=== PATIENT | female | born 1955 | race American Indian/Alaskan Native ===

== ENCOUNTER 2017-03-31 08:47 | Outpatient (CLI) | payer OTHER ==
--- NOTE | 2017-03-31 10:01 | Mammography Report ---
Screening mammogram: The patient has had reduction surgery. There is mild architectural distortion consistent with that history. No suspicious distortion, mass, or suspicious calcifications identified. The overall breast pattern is generally fatty replaced. CAD used. Impression: Benign breast pattern. Recommendation: Annual mammogram followup. BI-RADS CATEGORY: 2 = Benign ACR BI-RADS MAMMOGRAPHIC CODES: 0 = Needs additional imaging evaluation; 1 = Negative; 2 = Benign; 3 = Probably benign; 4 = Suspicious; 5 = Malignant; 6 = Known biopsy-proven malignancy COMMENT: 1. Dense breast tissue, i.e., adenosis, fibrocystic changes, etc., may obscure an underlying neoplasm. 2. Approximately 10% of cancers are not detected with mammography. 3. A negative mammography report should not delay biopsy if a clinically suspicious mass is present.
== END 2017-03-31 08:48 | disposition home or self-care (01) ==
LOC: MAMMO 08:47
PROVIDERS: ATTEND Obstetrics & Gynecology
DX: Z12.31 Encounter for screening mammogram for malignant neoplasm of breast (principal); I10 Essential (primary) hypertension; Z98.890 Other specified postprocedural states
CPT/HCPCS: 77067; G0202

== ENCOUNTER 2018-04-01 10:05 | Outpatient (CLI) | payer OTHER ==
--- NOTE | 2018-04-04 08:53 | Mammography Report ---
BILATERAL DIGITAL SCREENING MAMMOGRAM with CAD: 04/01/18 10:05:00 CLINICAL: Routine screening. COMPARISON:03/31/17 FINDINGS: The breasts are almost entirely fatty.Minimal postsurgical scar. Bilateral benign calcifications. No mass, architectural distortion or suspicious calcifications. IMPRESSION: No mammographic evidence of malignancy. BI-RADS CATEGORY: 2 -- Benign RECOMMENDATION: Routine mammographic screening in one year. COMMENT: Patient follow-up letters are generated by our [employer] application.
== END 2018-04-01 10:06 | disposition home or self-care (01) ==
LOC: MAMMO 10:05
PROVIDERS: ATTEND Obstetrics & Gynecology
DX: Z12.31 Encounter for screening mammogram for malignant neoplasm of breast (principal); I10 Essential (primary) hypertension
CPT/HCPCS: 77067

== ENCOUNTER 2018-09-13 02:11 | Emergency (ER) | payer OTHER ==
[2018-09-13 02:43] VITALS: BP 156/91
[2018-09-13] MEDS ORDERED: NACL 0.9% 1000 ML 1,000 ML IV ONE (02:43)
[2018-09-13 02:59] LABS: Basophils % (Auto) 0.6 % (0.0-1.8); Eosinophils # (Auto) 0.1 K/mm3 (0.0-0.4); Eosinophils % (Auto) 2.9 % (0.0-4.3); Hematocrit 39.1 % (30.3-42.9); Hemoglobin 12.9 gm/dl (10.1-14.3); Lymphocytes # (Auto) 2.1 K/mm3 (1.2-5.4); Lymphocytes % (Auto) 43.3 % (13.4-35.0); Mean Corpuscular HGB Conc 33 % (30-34); Mean Corpuscular Volume 81 fl (79-97); Monocytes # (Auto) 0.5 K/mm3 (0.0-0.8); Monocytes % (Auto) 10.8 % (0.0-7.3); Platelet Count 164 K/mm3 (140-440); Red Blood Count 4.85 M/mm3 (3.65-5.03); Red Cell Distribution Width 14.9 % (13.2-15.2)
[2018-09-13 03:18] LABS: Alanine Aminotransferase 41 units/L (7-56); Albumin 4.2 g/dL (3.9-5); BUN/Creatinine Ratio 13; Blood Urea Nitrogen 8 mg/dL (7-17); Calcium 10.7 mg/dL (8.4-10.2); Hemolysis Index 11
[2018-09-13 04:50] LABS: Bilirubin,Urine NEG (Negative); Blood,Urine NEG (Negative); Color,Urine Straw (Yellow); Mucus,Urine FEW /HPF; Protein,Urine <15 mg/dL mg/dL (Negative); Urobilinogen,Urine < 2.0 mg/dL (<2.0); WBC,Urine < 1.0 /HPF (0.0-6.0)
--- NOTE | 2018-09-13 06:10 | Cat Scan Report ---
FINAL REPORT EXAM: CT ABDOMEN PELVIS W CON HISTORY: llq pain TECHNIQUE: Routine axial imaging was obtained of the abdomen and pelvis following the intravenous in jection of 100 cc of Omnipaque 350. Delayed imaging was obtained through the kidneys ureters and blad negin. Sagittal and coronal reconstructions were reviewed. FINDINGS: The lung bases are negative for acute infiltrates or effusions. There is several small blebs bilatera lly. The liver is normal size reveals a 13.5 mm cyst in the right hepatic lobe. The gallbladder, biliary t ree, and pancreas appear normal. The spleen is normal size reveals an 8.5 mm cyst anteriorly. The adr enal glands appear normal. The kidneys enhance normally. There is no evidence of hydronephrosis. The abdominal aorta is normal in caliber. The portal vein enhances normally. The bowel loops are normal in caliber. There are multiple diverticula in the descending and sigmoid c olon. There is localized acute diverticulitis at the junction of the descending and sigmoid colon. Th ere is no evidence of perforation or abscess. There is no evidence of free fluid or adenopathy. The a ppendix appears normal. In the pelvis the uterus has a lobulated contour. Underlying fibroids cannot be excluded. The bladder appears normal. The skeletal structures reveal severe arthritic changes in t he lumbar spine with additional arthritic changes of both hip joints and SI joints. IMPRESSION: Acute diverticulitis at the junction of the descending and sigmoid colon. No evidence of perforation or abscess. Multiple uncomplicated diverticula in the descending and sigmoid colon. Small cysts in the right hepatic lobe and spleen. Extensive arthritic changes in the lumbar spine, hip joints and SI joints.
[2018-09-13] MEDS ORDERED: FLAGYL PO STA (06:17)
[2018-09-13] MEDS ORDERED: LEVAQUIN PO STA (06:17)
--- NOTE | 2018-09-13 06:22 | Emergency Department Report ---
<JOSE DEL CASTILLO - Last Filed: 09/13/18 06:18> ED Abdominal Pain HPI - General Chief Complaint: Abdominal Pain Stated Complaint: ABD PAIN Time Seen by Provider: 09/13/18 04:36 Source: patient Mode of arrival: Ambulatory Limitations: No Limitations - History of Present Illness MD Complaint: abdominal pain Location: LLQ Radiation: LLQ, suprapubic Migration to: LLQ Severity: moderate Quality: aching, sharp Consistency: constant Improves With: nothing Worsens With: nothing Associated Symptoms: denies other symptoms. denies: nausea, vomiting, dysuria, hematemesis, hematuria, anorexia - Related Data Previous Rx's Medication Instructions Recorded Last Taken Type HYDROcodone/APAP 5-325 [[place] 1 each PO Q6HR PRN #20 tablet 09/01/13 Unknown Rx 5/325 mg] Ondansetron [Zofran] 4 mg PO Q6HR PRN #20 tablet 09/01/13 Unknown Rx Ranitidine HCl [Zantac] 300 mg PO QDAY #20 tablet 09/01/13 Unknown Rx Ciprofloxacin HCl [Cipro] 500 mg PO BID #28 tablet 09/13/18 Unknown Rx Hyoscyamine Subl [Levsin Sl] 0.125 mg SL Q4HR PRN #16 tablet 09/13/18 Unknown Rx Ondansetron [Zofran ODT TAB] 8 mg PO Q12HR #14 tab.rapdis 09/13/18 Unknown Rx metroNIDAZOLE [Flagyl] 500 mg PO Q12HR #28 tab 09/13/18 Unknown Rx Allergies Allergy/AdvReac Type Severity Reaction Status Date / Time No Known Allergies Allergy Unverified 09/01/13 14:30 ED Review of Systems Constitutional: denies: chills, fever Eyes: denies: eye pain, eye discharge, vision change ENT: denies: ear pain, throat pain Respiratory: denies: cough, shortness of breath, wheezing Cardiovascular: denies: chest pain, palpitations Endocrine: no symptoms reported Gastrointestinal: abdominal pain, nausea. denies: diarrhea Genitourinary: denies: urgency, dysuria, discharge Musculoskeletal: denies: back pain, joint swelling, arthralgia Skin: denies: rash, lesions Neurological: denies: headache, weakness, paresthesias Psychiatric: denies: anxiety, depression Hematological/Lymphatic: denies: easy bleeding, easy bruising ED Past Medical Hx - Past Medical History Previous Medical History?: Yes Hx Hypertension: Yes Hx GERD: Yes Additional medical history: uterine prolapse. herpes - Surgical History Past Surgical History?: Yes Additional Surgical History: x1 - Social History Smoking Status: Never Smoker Substance Use Type: None - Medications Home Medications: Home Medications Medication Instructions Recorded Confirmed Last Taken Type HYDROcodone/APAP 5-325 [[place] 1 each PO Q6HR PRN #20 tablet 09/01/13 Unknown Rx 5/325 mg] Ondansetron [Zofran] 4 mg PO Q6HR PRN #20 tablet 09/01/13 Unknown Rx Ranitidine HCl [Zantac] 300 mg PO QDAY #20 tablet 09/01/13 Unknown Rx Ciprofloxacin HCl [Cipro] 500 mg PO BID #28 tablet 09/13/18 Unknown Rx Hyoscyamine Subl [Levsin Sl] 0.125 mg SL Q4HR PRN #16 tablet 09/13/18 Unknown Rx Ondansetron [Zofran ODT TAB] 8 mg PO Q12HR #14 tab.rapdis 09/13/18 Unknown Rx metroNIDAZOLE [Flagyl] 500 mg PO Q12HR #28 tab 09/13/18 Unknown Rx ED Physical Exam - General Limitations: No Limitations General appearance: alert, in no apparent distress - Head Head exam: Present: atraumatic, normocephalic - Eye Eye exam: Present: normal appearance, PERRL, EOMI - ENT ENT exam: Present: mucous membranes moist - Neck Neck exam: Present: normal inspection - Respiratory Respiratory exam: Present: normal lung sounds bilaterally. Absent: respiratory distress - Cardiovascular Cardiovascular Exam: Present: regular rate, normal rhythm. Absent: systolic murmur, diastolic murmur, rubs, gallop - GI/Abdominal GI/Abdominal exam: Present: soft, tenderness (left lower quadrant with palpation. No rebound.), normal bowel sounds. Absent: guarding, rebound, organomegaly, bruit, pulsatile mass, hernia - Extremities Exam Extremities exam: Present: normal inspection, full ROM, normal capillary refill - Back Exam Back exam: Present: normal inspection, full ROM. Absent: tenderness, CVA tenderness (R), CVA tenderness (L) - Neurological Exam Neurological exam: Present: alert, oriented X3, CN II-XII intact - Psychiatric Psychiatric exam: Present: normal affect, normal mood - Skin Skin exam: Present: warm, dry, intact, normal color. Absent: rash ED Medical Decision Making - Lab Data Result diagrams: 09/13/18 02:46 09/13/18 02:46 ED Disposition Clinical Impression: Diverticulitis Disposition: DC-01 TO HOME OR SELFCARE Is pt being admited?: No Does the pt Need Aspirin: No Condition: Stable Instructions: Diverticulitis (ED), Abdominal Pain (ED) Additional Instructions: She to return to emergency department she develop any fever, inability to control vomiting, bloody stools, any severe pain that does not resolve for anything to suggest that she symptoms are worsening. Prescriptions: Ciprofloxacin HCl [Cipro] 500 mg PO BID #28 tablet Hyoscyamine Subl [Levsin Sl] 0.125 mg SL Q4HR PRN #16 tablet PRN Reason: Spasms metroNIDAZOLE [Flagyl] 500 mg PO Q12HR #28 tab Ondansetron [Zofran ODT TAB] 8 mg PO Q12HR #14 tab.angie Referrals: ZENAIDA CHAPMAN MD [Primary Care Provider] - 3-5 Days Forms: Accompanied Note, Work/School Release Form(ED) <OBED GORMAN - Last Filed: 09/17/18 12:14> ED Review of Systems ROS: Stated complaint: ABD PAIN Other details as noted in HPI ED Course Vital Signs 09/13/18 09/13/18 02:37 06:53 Temperature 98.7 F Pulse Rate 89 74 Respiratory 18 16 Rate Blood Pressure 156/91 O2 Sat by Pulse 98 100 Oximetry ED Medical Decision Making - Lab Data Result diagrams: 09/13/18 02:46 09/13/18 02:46 Critical care attestation.: If time is entered above; I have spent that time in minutes in the direct care of this critically ill patient, excluding procedure time. ED Disposition Is pt being admited?: No Does the pt Need Aspirin: No
== END 2018-09-13 06:53 | disposition home or self-care (01) ==
LOC: ED 02:11
DX: K57.92 Diverticulitis of intestine, part unspecified, without perforation or abscess without bleeding (principal); K21.9 Gastro-esophageal reflux disease without esophagitis; I10 Essential (primary) hypertension; Z79.899 Other long term (current) drug therapy
CPT/HCPCS: 36415; 74177; 80053; 81001; 85025; 99284; Q9967

== ENCOUNTER 2018-09-20 09:48 | Outpatient (CLI) | payer OTHER ==
--- NOTE | 2018-09-20 10:38 | XRay Report ---
LEFT SHOULDER, 3 views: History: Arthritis. There is borderline bone mineralization. Moderate osteoarthritic changes are identified at the a.c. joint and glenohumeral joint. Prominent inferior spurring from the a.c. joint is noted. No evidence for fracture, dislocation, ligamentous injury or bone lesion. The soft tissues are unremarkable. IMPRESSION: Osteoarthritis as described. Borderline osteopenia.
== END 2018-09-20 09:49 | disposition home or self-care (01) ==
LOC: XRAY 09:48
PROVIDERS: ATTEND Internal Medicine
DX: M19.012 Primary osteoarthritis, left shoulder (principal); I10 Essential (primary) hypertension; K21.9 Gastro-esophageal reflux disease without esophagitis

== ENCOUNTER 2020-10-02 19:35 | Emergency (ER) | payer OTHER ==
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
[2020-10-02 20:42] LABS: Hematocrit 39.3 % (30.3-42.9); Hemoglobin 13.4 gm/dl (10.1-14.3); Mean Corpuscular HGB Conc 34 % (30-34); Mean Corpuscular Volume 81 fl (79-97); Platelet Count 198 K/mm3 (140-440); Red Blood Count 4.84 M/mm3 (3.65-5.03); Red Cell Distribution Width 14.8 % (13.2-15.2)
[2020-10-02 21:03] LABS: Blood Urea Nitrogen 12 mg/dL (7-17); Calcium 9.9 mg/dL (8.4-10.2); Hemolysis Index 61
[2020-10-02 21:06] LABS: BUN/Creatinine Ratio 24
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
[2020-10-02] MEDS ORDERED: HYDROmorphone 1 MG/1 ML INJ IV ONE (22:29)
[2020-10-02] MEDS ORDERED: HYDROmorphone 1 MG/1 ML INJ ONE (22:29)
--- NOTE | 2020-10-02 22:32 | Cat Scan Report ---
CT ABDOMEN AND PELVIS WITH CONTRAST INDICATION / CLINICAL INFORMATION: Post-M.V.A., now with abdominal and lumbar spine pain. TECHNIQUE: Axial CT images were obtained through the abdomen and pelvis following the administration of intraven ous contrast. All CT scans at this location are performed using CT dose reduction for ALARA by means of automated exposure control. COMPARISON: CT abdomen/pelvis dated 09/13/2018. FINDINGS: LOWER CHEST: No significant abnormality. LIVER: Hypodensity within the right hepatic dome is compatible with a benign cyst. GALLBLADDER: No significant abnormality. PANCREAS: No significant abnormality. SPLEEN: Small hypodensity is most compatible with a cyst. ADRENALS: No significant abnormality. KIDNEYS / URETERS: No significant abnormality. URINARY BLADDER: No significant abnormality. REPRODUCTIVE ORGANS: No significant abnormality. STOMACH / SMALL BOWEL: No significant abnormality. COLON: Scattered colonic diverticulosis without evidence of inflammation. APPENDIX: No significant abnormality. PERITONEUM: No free fluid. No free air. No fluid collection. LYMPH NODES: No significant adenopathy. AORTA / ARTERIES: No significant abnormality. IVC / VEINS: No significant abnormality. SKELETAL SYSTEM: No acute osseous abnormality. ADDITIONAL FINDINGS: None. IMPRESSION: 1. No acute abdominopelvic abnormality. 2. Scattered colonic diverticulosis without evidence of diverticulitis. Signer Name: Irvin Churchill MD Signed: 10/02/2020 10:28 PM Workstation Name: [id number]
[2020-10-02 22:58] VITALS: BP 136/81
== END 2020-10-02 23:05 | disposition home or self-care (01) ==
LOC: ED 19:35
DX: S21.109A Unspecified open wound of unspecified front wall of thorax without penetration into thoracic cavity, initial encounter (principal); S80.02XA Contusion of left knee, initial encounter; S80.01XA Contusion of right knee, initial encounter; S30.1XXA Contusion of abdominal wall, initial encounter; M94.0 Chondrocostal junction syndrome [Tietze]; I10 Essential (primary) hypertension; K21.9 Gastro-esophageal reflux disease without esophagitis; Z79.899 Other long term (current) drug therapy; Z98.890 Other specified postprocedural states; V49.49XA Driver injured in collision with other motor vehicles in traffic accident, initial encounter; Y93.89 Activity, other specified; Y92.410 Unspecified street and highway as the place of occurrence of the external cause; Y99.8 Other external cause status
CPT/HCPCS: 36415; 71111; 73564; 74177; 80048; 85027; 93005; 96374; 99285; J1170; Q9967

== ENCOUNTER 2021-06-24 08:56 | Outpatient (CLI) | payer MEDICARE ==
--- NOTE | 2021-06-24 10:36 | Mammography Report ---
BILATERAL DIGITAL SCREENING MAMMOGRAM WITH CAD HISTORY: Screening mammogram. History of reduction surgery bilaterally. TECHNIQUE: Routine digital mammographic imaging performed. This examination was interpreted with gerald caputo benefit of Computer-aided Detection analysis. COMPARISON: 04/01/2018, 03/31/2017. FINDINGS: Breast Density: predominantly fatty breast parenchymal pattern. Digital CC and MLO views demonstrate no mammographic evidence of malignancy. Stable reduction change s bilaterally with associated coarse benign-appearing calcifications. IMPRESSION: No mammographic evidence of malignancy. If the clinical examination remains stable, recommend bilate ral mammogram in approximately one year. BIRADS 2: Benign Finding(s). FURTHER INFORMATION: According to the [employer], yearly mammograms are recommend ed starting at age 40 and continuing as long as a woman is in good health. Clinical Breast Exams shou ld be part of a periodic health exam-about every 3 years for women in their 20s and 30s and every yea r for women 40 and over. Breast self exam is an option for women starting in their 20s. Any breast ch nickie noted on a breast self exam should be reported promptly to the patient's healthcare provider. Br east MRI is recommended for women with an approximately 20-25% or greater lifetime risk of breast can cer, including women with a strong family history of breast or ovarian cancer and women who have been treated for Hodgkin's disease. A negative Mammography report should not discourage follow up or biopsy of a clinically significant f inding and/or abnormality. Dense breast tissue may obscure small neoplasms. The patient will be entered into a reminder system with a target due date for the next screening mamm ogram. Signer Name: Perez Cruz MD Signed: 06/24/2021 10:31 AM Workstation Name: [id number]
--- NOTE | 2021-06-24 10:42 | Mammography Report ---
DEXA BONE DENSITY SCAN INDICATION: Postmenopausal, osteopenia.. COMPARISON: None available. DEFINITIONS: BMD = Bone Mineral Density T-score = BMD related to mean peak bone mass of a young child (mean expressed in standard deviation) Z-score = age matched BMD is expressed in SD World Health Organization (WHO) diagnostic criteria Normal T score > -1 SD Osteopenia T score between -1 and -2.4 SD Osteoporosis T score -2.5 SD or below. LUMBAR SPINE (L1-L4): Bone mineral density (BMD) is 1.084 g/cm2. T-score is 0.3 (standard deviations of Young Adult mean). Z-score is 1.4 (standard deviations of Age Matched mean). LEFT FEMORAL NECK: Bone mineral density (BMD) is 0.908 g/cm2. T-score is -0.3 (standard deviations of Young Adult mean). Z-score is 0.2 (standard deviations of Age Matched mean). IMPRESSION: WHO Classification: Normal bone density. Signer Name: Perez Cruz MD Signed: 06/24/2021 10:38 AM Workstation Name: [id number]
== END 2021-06-24 08:57 | disposition home or self-care (01) ==
LOC: MAMMO 08:56
PROVIDERS: ATTEND Internal Medicine
DX: Z12.31 Encounter for screening mammogram for malignant neoplasm of breast (principal); Z13.820 Encounter for screening for osteoporosis; Z78.0 Asymptomatic menopausal state
CPT/HCPCS: 77067; 77080

== ENCOUNTER 2022-02-18 08:47 | Outpatient (CLI) | payer OTHER ==
--- NOTE | 2022-02-18 09:41 | XRay Report ---
Pelvis and bilateral hips INDICATION: Hip pain FINDINGS: Moderate degenerative change bilateral hips and joint space narrowing. No acute fracture di slocation. Degenerative change in lower lumbar spine. 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 Signer Name: Kam Inman MD Signed: 02/18/2022 9:37 AM Workstation Name: [id number]
--- NOTE | 2022-02-18 09:44 | XRay Report ---
CHEST 2 VIEWS INDICATION / CLINICAL INFORMATION: BACK PAIN STUDY TIME: 921 COMPARISON: 04/26/2012 not currently available FINDINGS: SUPPORT DEVICES: None. HEART / MEDIASTINUM: No significant abnormality. LUNGS / PLEURA: No significant acute pulmonary or pleural abnormality. No pneumothorax. ADDITIONAL FINDINGS: No significant additional findings. LUMBAR SPINE 3 VIEWS 917 INDICATION: BACK PAIN COMPARISON: None available. FINDINGS: Slight scoliosis. No fractures. Degenerative changes with mild disc space narrowing at L5-S 1 where there is slight retrolisthesis. No other subluxation. Prominent facet arthritic changes, part icularly in the lower lumbar region. Mild atherosclerotic changes. Signer Name: Asael Siegel MD Signed: 02/18/2022 9:39 AM Workstation Name: [id number]
== END 2022-02-18 08:48 | disposition home or self-care (01) ==
LOC: XRAY 08:47
PROVIDERS: ATTEND Internal Medicine
DX: M16.0 Bilateral primary osteoarthritis of hip (principal); M47.817 Spondylosis without myelopathy or radiculopathy, lumbosacral region; I70.0 Atherosclerosis of aorta
CPT/HCPCS: 71046; 72100; 73521